=== PATIENT | male | born 1965 | race Caucasian/White ===

== ENCOUNTER 2022-12-16 10:56 | Emergency (ER) | payer MEDICARE, MEDICAID ==
[~2022-12-16] VITALS: Ht 180.3 cm; Wt 109.1 kg
[~2022-12-16 10:56] MED LIST: NO HOME MEDS
[2022-12-16 11:11] VITALS: TEMP 97.4
[2022-12-16 11:36] LABS: ALANINE AMINOTRANSFERASE 34 U/L (12-78); ALBUMIN 3.9 G/DL (3.4-5.0); ALKALINE PHOSPHATASE 96 IU/L (46-116); ANION GAP 10 (8-16); ASPARTATE AMINO TRANSFERASE 20 U/L (10-37); BASOPHILS % (AUTO) 0.3 % (0-1); BILIRUBIN,TOTAL 0.3 MG/DL (0.1-1.0); BLOOD UREA NITROGEN 17 MG/DL (7-18); BUN/CREATININE RATIO 14.2 (10.0-20.0); CALCIUM 9.4 MG/DL (8.5-10.1); CHLORIDE 104 MMOL/L (99-107); EOSINOPHILS # (AUTO) 0.2 X10'3 (0-0.9); EOSINOPHILS % (AUTO) 2.4 % (0-6); GLUCOSE 122 MG/DL (70-104); HEMATOCRIT 42.1 % (42.0-52.0); HEMOGLOBIN 14.1 g/dl (14.0-17.9); LYMPHOCYTES # (AUTO) 1.7 X10'3 (1.1-4.8); MEAN CORPUSCULAR HEMOGLOBIN 26.7 PG (27.0-31.0); MEAN CORPUSCULAR HGB CONC 33.4 g/dL (33.0-36.5); MEAN CORPUSCULAR VOLUME 79.9 FL (78-98); MEAN PLATELET VOLUME 8.1 FL (7.4-10.4); MONOCYTES # (AUTO) 0.6 X10'3 (0-0.9); NEUTROPHILS # (AUTO) 5.5 X10'3 (1.8-7.7); NEUTROPHILS % (AUTO) 68.3 % (42-75); PLATELET COUNT 277 X10'3 (140-440); POTASSIUM 4.7 MMOL/L (3.5-5.1); RED BLOOD COUNT 5.28 X10'6 (4.70-6.10); RED CELL DISTRIBUTION WIDTH 15.8 % (11.5-14.5); SODIUM 140 MMOL/L (135-145); TOTAL CARBON DIOXIDE 25.9 MMOL/L (24-32); eGFR 63 ML/MIN
[2022-12-16] MEDS ORDERED: labetalol 20mg/4ml (5mg/ml) syringe IV ONE ×2 (13:50→15:55)
[2022-12-16 14:11] LABS: D-DIMER < 0.19 MG/L FEU (0-0.50)
[2022-12-16] MEDS ORDERED: normal saline 1000ml 1,000 ML IV ONE (17:35)
[2022-12-16 17:36] VITALS: BP 152/95; PULSE 118; RESP 20; O2SAT 99
[2022-12-16 18:42] LABS: CLARITY,URINE CLEAR (Clear); COLOR,URINE YELLOW (Yellow); GLUCOSE, URINE NEGATIVE (Neg); KETONES,URINE NEGATIVE (Neg); LEUKOCYTE ESTERASE ,URINE NEGATIVE (Neg); NITRITES, URINE NEGATIVE (Neg); OCCULT BLOOD,URINE SMALL (Neg); PROTEIN,URINE NEGATIVE (Neg); UROBILINOGEN,URINE 0.2 E.U/dL (0.2-1.0)
[2022-12-16 18:45] LABS: UA COLLECTION TYPE CLN CATCH MIDSTREAM
[2022-12-16 18:49] LABS: BACTERIA,URINE NONE SEEN /HPF (Neg); MUCUS STRANDS NONE SEEN /LPF (Neg); RBC,URINE 0-2 /HPF (0-2); SQUAMOUS EPITHELIAL CELL,UR FEW /LPF (FEW); WBC,URINE NONE SEEN /HPF (0-4)
[2022-12-16 19:01] LABS: URINE AMPHETAMINE SCREEN NEGATIVE (Neg); URINE BARBITUATE SCREEN NEGATIVE (Neg); URINE BENZODIAZEPINES SCREEN NEGATIVE (Neg); URINE CANNABINOID SCREEN NEGATIVE (Neg); URINE COCAINE SCREEN NEGATIVE (Neg); URINE METHADONE SCREEN NEGATIVE (Neg); URINE OPIATE SCREEN NEGATIVE (Neg); URINE PHENCYCLIDINE SCREEN NEGATIVE (Neg)
== END 2022-12-16 19:28 | disposition home or self-care (01) ==
LOC: ER 10:56
DX: R07.9 Chest pain, unspecified (principal); R00.0 Tachycardia, unspecified; R42 Dizziness and giddiness
CPT/HCPCS: 36415; 71045; 80053; 80305; 81001; 83880; 84443; 84484; 85025; 85379; 93005; 96374; 96376; 99285; J3490; J7030